=== PATIENT | female | born 1995 | race Caucasian/White ===

== ENCOUNTER 2019-12-17 14:49 | Emergency (ER) | payer OTHER ==
[2019-12-17 14:59] VITALS: BMI 41.5
--- NOTE | 2019-12-17 15:46 | PDOC ---
History of Present Illness - General Chief Complaint: Nausea/Vomiting Stated Complaint: WEAKNESS Time Seen by Provider: 12/17/19 15:06 - History of Present Illness Initial Comments: 12/17/19 15:43 Pt is a 24y/o female 3 months post-, iron-deficiency anemia, SLE (on immunosuppresion), and IBS who presents with 4 months of gradually worsening fatigue, dizziness, and headache. She received 2 units PRBCs after and reports Hb is usually near 10. She began having nausea and vomiting 2 days ago. She last vomited this morning when trying to eat soup. She also reports fevers during this time, tmax 101, palpitations, sore throat, right ear pain, and constipation. She has not had a menstrual period since giving but reports hormonal IUD. She also reports 4 months of pruritic non-painful rash on hands and feet. She was given triamcinolone topical with no relief. Rash is spreading to abdomen and upper leg. No contacts have a rash. Past History - Past Medical History Allergies/Adverse Reactions: Allergies Allergy/AdvReac Type Severity Reaction Status Date / Time ciprofloxacin Allergy Verified 12/17/19 15:03 clindamycin Allergy Verified 12/17/19 15:03 diphenhydramine Allergy Verified 12/17/19 15:03 doxycycline Allergy Verified 12/17/19 15:03 Fish Containing Products Allergy Verified 12/17/19 15:03 haloperidol [From Haldol] Allergy Verified 12/17/19 15:03 lactose Allergy Verified 12/17/19 15:03 mercury (elemental) Allergy Verified 12/17/19 15:03 orange flavor Allergy Verified 12/17/19 15:03 peanut Allergy Verified 12/17/19 15:03 Penicillins Allergy Verified 12/17/19 15:03 shellfish derived Allergy Verified 12/17/19 15:03 vancomycin Allergy Verified 12/17/19 15:03 Home Medications: Ambulatory Orders Aspirin 81 mg PO DAILY 12/17/19 Famotidine [Acid Controller] 20 mg PO DAILY 12/17/19 Hydroxychloroquine Sulfate [Plaquenil] 200 mg PO BID 12/17/19 Methylprednisolone 8 mg PO HS 12/17/19 Methylprednisolone [Methylpred Dp] 4 mg PO HS 12/17/19 COPD: No GI Disorders: Yes (GERD) Other medical history: LUPUS - Surgical History Abdominal Surgery: Yes ( x2) - Psycho Social/Smoking Cessation Hx Smoking History: Former smoker Have you smoked in the past 12 months: No Information on smoking cessation initiated: No Hx Alcohol Use: No Drug/Substance Use Hx: No Review of Systems - Review of Systems Constitutional: Yes: Fever. No: Chills Respiratory: No: Cough, Shortness of Breath Cardiac (ROS): Yes: Palpitations. No: Chest Pain ABD/GI: Yes: Constipated, Nausea, Vomiting. No: Diarrhea Integumentary: Yes: Dryness, Pruritus, Rash Neurological: Yes: Headache, Weakness, Dizziness Hematologic/Lymphatic: Yes: Anemia *Physical Exam - Vital Signs Last Vital Signs Temp Pulse Resp BP Pulse Ox 98.6 F 93 H 18 130/93 100 12/17/19 14:56 12/17/19 14:56 12/17/19 14:56 12/17/19 14:56 12/17/19 15:25 - Physical Exam General Appearance: Yes: Nourished, Appropriately Dressed, Obese. No: Apparent Distress HEENT: positive: EOMI, ANDREW Neck: positive: Trachea midline Respiratory/Chest: positive: Lungs Clear Cardiovascular: positive: Regular Rhythm, Regular Rate. negative: Murmur Gastrointestinal/Abdominal: positive: Normal Bowel Sounds, Tender (epigastric and RUQ) Integumentary: positive: Other (papular rash on dorsal surfaces of hands and feet, some present on soles of feet) Neurologic: positive: rip sawyer II-XII NML intact, Fully Oriented, Alert, Other (flat affect, incongruent to situation) ED Treatment Course - LABORATORY CBC & Chemistry Diagram: 12/17/19 16:00 12/17/19 16:00 Medical Decision Making - Medical Decision Making 12/17/19 16:35 Pt is a 24y/o female 3 months post-, iron-deficiency anemia, SLE (on immunosuppresion), and IBS who presents with 4 months of gradually worsening fatigue, dizziness, and headache. She also reports fevers during this time, tmax 101, pelvic pain, palpitations, sore throat, and right ear pain. She also reports 4 months of pruritic non-painful rash on hands and feet. Pt's affect is incongruent to situation. ddx: symptomatic anemia, URI, rash possibly fungal, post- depression, cholecystitis, UTI, vasculitis, retained products of conception, contact dermatitis orders: CBC, CMP, UA, blood and urine cx, EKG, fluids, Zofran 12/17/19 16:39 EKG- NSR HR 76, normal axis, no ST changes, QTc 434 CBC- microcytosis, Hb 10.9 12/17/19 16:50 ALK 136, t-bili normal, UA negative 12/17/19 18:00 TVUS ordered to r/o retained products, if negative pt will need to f/u with derm 12/17/19 21:17 Pt left AMA because her ride home would not be able to pick her up after 2099. I spoke to her on the phone and explained the TVUS did not show anything that needed to be addressed now (only showed trace pelvic fluid). She needs to follow up with Dr. Niño, primary care, in order to get a referral for Dr. Mclaughlin with dermatology. She was also explained that she should return to the ED if her symptoms worsen. Pt is in understanding. Discharge - Discharge Information Problems reviewed: Yes Clinical Impression/Diagnosis: Rash Nausea & vomiting Qualifiers: Vomiting type: unspecified Vomiting Intractability: non-intractable Qualified Code(s): R11.2 - Nausea with vomiting, unspecified Condition: Stable Disposition: AGAINST MEDICAL ADVICE - Follow up/Referral Referrals: ON STAFF,NOT [Primary Care Provider] - Brianna Mclaughlin MD [Staff Physician] - - Patient Discharge Instructions Patient Printed Discharge Instructions: DI for Vomiting -- Adult Additional Instructions: You were seen in the emergency room for vomiting and rash. You were given medicine for nausea. An ultrasound of your stomach showed . You are able to go home. Follow Up: Dr. Toledo, primary care, to discuss if you need to continue taking aspirin. Dr. Leung, dermatology, for your rash. - Post Discharge Activity
--- NOTE | 2019-12-17 16:07 | PDOC ---
Documentation entered by Abundio Griggs SCRIBE, acting as scribe for Alix Patel MD. Alix Patel MD: This documentation has been prepared by the Indu fontana Nirvannie, SCRIBE, under my direction and personally reviewed by me in its entirety. I confirm that the documentation accurately reflects all work, treatment, procedures, and medical decision making performed by me. Attending Attestation - Resident Resident Name: Jes Boyce - ED Attending Attestation I have performed the following: I have examined & evaluated the patient, The case was reviewed & discussed with the resident, I agree w/resident's findings & plan, Exceptions are as noted - HPI HPI: The patient is a 24 year old female, with a significant past medical history of Lupus, Anemia, IBS, who presents to the emergency department with 2 days of nausea, vomiting, and palpitations. Patient notes associated 4 months of a diffuse rash to the bilateral hands, bilateral feet, and abdomen. Patient is 3 months post . +Fever of 101 at home yesterday. - Physicial Exam PE: GENERAL: Awake, alert, and fully oriented, in no acute distress. Obese. HEAD: No signs of trauma EYES: PERRLA, EOMI, sclera anicteric, conjunctiva clear ENT: Auricles normal inspection, hearing grossly normal, nares patent, oropharynx clear without exudates. Moist mucosa. No intraoral lesions NECK: Normal ROM, supple, no lymphadenopathy, JVD, or masses LUNGS: Breath sounds equal, clear to auscultation bilaterally. No wheezes, and no crackles HEART: Regular rate and rhythm, normal S1 and S2, no murmurs, rubs or gallops ABDOMEN: Soft, nontender, normoactive bowel sounds. No guarding, no rebound. No masses EXTREMITIES: Normal range of motion, no edema. No clubbing or cyanosis. No cords, erythema, or tenderness NEUROLOGICAL: Cranial nerves II through XII grossly intact. Normal speech, normal gait. Motor and sensation intact SKIN: Warm, dry, normal turgor. +Papular rash to the dorsal surfaces of the hands and feet, mostly sparing the palms and soles. Rash is excoriated, slightly erythematous. +Small patches of erythematous papular rash to the abdomen, following the lines of her pants waist. - Medical Decision Making Pt presents with multiple complaints. She is 3 months , complicated by cholestasis, as well as her lupus. She had a complicated delivery , stating that her baby did not breathe for 5 minutes and required resuscitation. Her affect is somewhat flat as she describes all the events. She is a somewhat vague historian, as well. The etiology of the fever is unclear- flu unlikely as there are no respiratory symptoms. Poss gastro? Abd is soft and nontender. The rash has been present since she delivered, so it is likely not connected to the current presentation. It may be fungal, as she has one lesion on the hand that is ring-shaped. Will obtain labs to check CBC, liver and kidney functions. Will obtain UA and Urine culture as well. If no abnormal findings, will DC home with outpatient f/u. Patient is nontoxic in appearance. Addendum- Case d/w Dr. Han including images of the rash. Based on history and the appearance of the rash, suspected a vasculitis. Recommended a TVUS to r/o any retained products. If negative, f/u with derm for a biopsy.
[2019-12-17] MEDS ORDERED: SODIUM CHLORIDE 1,000 ML IV STA (16:15)
[2019-12-17] MEDS ORDERED: ONDANSETRON 4 MG/2 ML VIAL IVPUSH ONE (16:16)
[2019-12-17] MEDS ORDERED: ONDANSETRON 4 MG/2 ML VIAL ONE ×2 (16:22)
[2019-12-17 16:28] LABS: BASO % 0.5 % (0-2.0); EOS % 2.1 % (0-4.5); HEMATOCRIT 34.8 % (32.4-45.2); HEMOGLOBIN 10.9 GM/dL (10.7-15.3); LYMPH % 21.9 % (8-40); MCH 23.5 pg (25.7-33.7); MCHC 31.4 g/dl (32.0-36.0); MEAN CELL VOLUME 74.9 fl (80-96); MONO % 7.2 % (3.8-10.2); NEUT % 68.3 % (42.8-82.8); PLATELET COUNT 212 K/MM3 (134-434); RBC 4.65 M/mm3 (3.60-5.2); WHITE BLOOD COUNT 6.1 K/mm3 (4.0-10.0)
[2019-12-17 16:46] LABS: PH,URINE 5.5 (5.0-8.0); URINE APPEARANCE Clear; URINE BILIRUBIN Negative (NEGATIVE); URINE COLOR Yellow; URINE GLUCOSE (UA) Negative (NEGATIVE); URINE KETONE Negative (NEGATIVE); URINE LEUK ESTERASE Negative (NEGATIVE); URINE NITRITE Negative (NEGATIVE); URINE PROTEIN Negative (NEGATIVE); URINE UROBILINOGEN 0.2 mg/dL (0.2-1.0)
[2019-12-17 16:50] LABS: ALBUMIN 3.5 g/dl (3.4-5.0); BILIRUBIN,TOTAL 0.2 mg/dL (0.2-1); BLOOD UREA NITROGEN 17.8 mg/dL (7-18); CALCIUM 8.5 mg/dL (8.5-10.1); CREATININE 0.6 mg/dL (0.55-1.3); POTASSIUM 4.1 mmol/L (3.5-5.1); TOT PROT 7.3 g/dl (6.4-8.2)
[2019-12-17 18:11] VITALS: BP 117/79; PULSE 89; TEMP 99.4
--- NOTE | 2019-12-18 12:35 | EKG ---
Test Reason : Blood Pressure : / mmHG Vent. Rate : 076 BPM Atrial Rate : 076 BPM P-R Int : 134 ms QRS Dur : 088 ms QT Int : 386 ms P-R-T Axes : 058 019 008 degrees QTc Int : 434 ms NORMAL SINUS RHYTHM NONSPECIFIC ST ABNORMALITY NO PREVIOUS ECGS AVAILABLE Confirmed by IGNACIO DOBBINS MD ([id number]) on 12/18/2019 12:35:11 PM Referred By: Confirmed By:IGNACIO DOBBINS MD
== END 2019-12-17 20:56 | disposition left against medical advice (07) ==
LOC: SUPCPDRO 14:49 → JER 14:49
DX: R21 Rash and other nonspecific skin eruption (principal); R11.2 Nausea with vomiting, unspecified; M32.9 Systemic lupus erythematosus, unspecified; D50.8 Other iron deficiency anemias; Z87.19 Personal history of other diseases of the digestive system; Z88.1 Allergy status to other antibiotic agents; Z88.8 Allergy status to other drugs, medicaments and biological substances; Z91.018 Allergy to other foods; Z91.09 Other allergy status, other than to drugs and biological substances
CPT/HCPCS: 36415; 76830-TC; 80053; 81003; 85025; 87040; 87086; 93005; 93010; 99283-25; J7030